=== PATIENT | male | born 1960 | race Caucasian/White ===

== ENCOUNTER → 2023-01-31 12:30 | Outpatient (CLI) | payer OTHER, SELFPAY | PROVIDERS: PCP Internal Medicine Adolescent Medicine; Visit Provider Internal Medicine Adolescent Medicine | DX: G47.33 Obstructive sleep apnea (adult) (pediatric) (principal); R06.83 Snoring; I10 Essential (primary) hypertension; R40.0 Somnolence | CPT/HCPCS: 95806 ==

== ENCOUNTER 2023-07-16 14:43 | Outpatient (CLI) | payer OTHER, SELFPAY ==
--- NOTE | 2023-07-16 14:48 | CA_ITS ---
FINAL REPORT TECHNIQUE: Bilateral lower extremity venous duplex was performed with augmentation and compression. CLINICAL HISTORY: EDEMA BLE'S,PAIN BLE'S FINDINGS: Proper flow is seen throughout the deep venous systems bilaterally. There is no evidence of deep venous thrombosis. IMPRESSION: No evidence of deep venous thrombosis. Reviewed, Interpreted and Dictated by Vernon Jeffries MD Transcribed by Tiffany Manzo Authenticated and [facility]
== END 2023-07-16 23:59 ==
LOC: RT 14:45
PROVIDERS: PCP Internal Medicine Adolescent Medicine; Visit Provider Internal Medicine Adolescent Medicine
DX: R60.0 Localized edema (principal)
CPT/HCPCS: 93970